=== PATIENT | female | born 2005 | race Two or more races ===

== ENCOUNTER 2024-02-11 13:05 | Emergency (ER) | payer MEDICAID ==
[~2024-02-11] VITALS: Ht 165.1 cm; Wt 65.0 kg
--- NOTE | 2024-02-11 13:28 | ED.PDOC ---
GI ASSESSMENT HPI Comments 18 year old female presents to the ED with chief complaint of abdominal pain during . Patient reports that she has been experiencing epigastric and suprapubic abdominal pain with associated nausea and vomiting since yesterday at 6pm. Patient relays that she is currently 5 weeks with her 2nd child after confirming with a test. Patient states she currently has no OBGYN follow up as she has recently arrived in the [place] and is unfamiliar with the doctors around where she lives. Patient is . Patient denies any diarrhea, fever, chills, chest pain, dizziness, vaginal bleeding, dysuria, or vaginal discharge. Time Seen by MD: 13:21 Reviewed Notes: Nurses Notes, Medications, Allergies Home Meds Active Scripts Famotidine (PEPCID TABLET) 20 Mg Tb, 1 TAB PO BID PRN for 10 Days, #20 TAB 5 Refills Prov:LAURA CORONADO MD 02/11/24 Dicyclomine Hcl (BENTYL CAPSULE) 10 Mg Cp, 10 MG GT Q6HP PRN for 10 Days, #30 CAP 3 Refills Prov:LAURA CORONADO MD 02/11/24 Information Source: Patient Mode of Arrival: Ambulatory Timing: Days Duration: Since onset Prehospital treatment: None Quality: Cramping, Colicky Vomitus: Watery Stool: Normal Severity: Moderate Recent: None Recent Hx of: Current Pain Location: Epigastric Associated sign and symptoms: Nausea, Vomiting, Abdominal Pain Past Medical History PAST MEDICAL HISTORY: Denies Surgical History: Denies all surgeries MARKET RESEARCH WORKER History: No Pertinent MARKET RESEARCH WORKER History Family History Family History: Reviewed,noncontributory to illness Social History Smoker: Non-Smoker Alcohol: Denies ETOH Use Drugs: Denies Drug Use Lives In: Home Constitutional: denies: chills, diaphoresis, fatigue, fever, malaise, sweats, weakness, others EENTM: denies: blurred vision, double vision, ear bleeding, ear discharge, ear drainage, ear pain, ear ringing, eye pain, eye redness, hearing loss, mouth pain, mouth swelling, nasal discharge, nose bleeding, nose congestion, nose pain, photophobia, tearing, throat pain, throat swelling, voice changes, others Respiratory: denies: cough, hemoptysis, orthopnea, SOB at rest, shortness of breath, SOB with excertion, stridor, wheezing, others Cardiovascular: denies: chest pain, dizzy spells, diaphoresis, Dyspnea on exertion, edema, irregular heart beat, left arm pain, lightheadedness, palpitations, PND, syncope, others Gastrointestinal: reports: abdominal pain, nausea, vomiting; denies: abdomen distended, blood streaked bowels, constipated, diarrhea, dysphagia, difficulty swallowing, hematemesis, melena, poor appetite, poor fluid intake, rectal bleeding, rectal pain, others Genitourinary: reports: ; denies: abnormal vagina bleeding, burning, dyspareunia, dysuria, flank pain, frequency, hematuria, incontinence, pain, vagina discharge, urgency, others Neurological: denies: dizziness, fainting, headache, left sided numbness, left sided weakness, numbness, paresthesia, pre-existing deficit, right sided numbness, right sided weakness, seizure, speech problems, tingling, tremors, weakness, others Musculoskeletal: denies: back pain, gout, joint pain, joint swelling, muscle pain, muscle stiffness, neck pain, others Integumetry: denies: bruises, change in color, change in hair/nails, dryness, laceration, lesions, lumps, rash, wounds, others Allergic/Immunocompromised: denies: Difficulty Healing, Frequent Infections, Hives, Itching, others Hematologic/Lymphatic: denies: anemia, blood clots, easy bleeding, easy bruising, swollen glands, others Endocrine: denies: excessive hunger, excessive sweating, excessive thirst, excessive urination, flushing, intolerance to cold, intolerance to heat, unexplained weight gain, unexplained weight loss, others Psychiatric: denies: anxiety, bipolar disorder, depression, hopeless, panic disorder, schizophrenia, sleepless, suicidal, others All Other Systems: Reviewed and Negative Physical Exam General Appearance: Mild Distress, Normal HEENT: Normal ENT Inspection, PERRL/EOMI Neck: Full Range of Motion, Non-Tender, Normal, Normal Inspection Respiratory: Chest Non-Tender, Lungs Clear, No Accessory Muscle Use, No Respiratory Distress, Normal Breath Sounds Cardiovascular: No Edema, No JVD, No Murmur, No Gallop, Normal Peripheral Pulses, Regular Rate/Rhythm Breast Exam: Deferred Gastrointestinal: No Organomegaly, Non Tender, No Pulsatile Mass, Normal Bowel Sounds, Soft, Tenderness (Mild epigastric tenderness, no rebound) Genitalia: Deferred Pelvic: Deferred Rectal: Deferred Extremities: No calf tenderness, Normal capillary refill, Normal inspection, Normal range of motion, Non-tender, No pedal edema Musculoskeletal : Apperance: Normal Neurologic: Alert, food and beverage server II-XII nml as Tested, No Motor Deficits, Normal Affect, Normal Mood, No Sensory Deficits Cerebellar Function: Normal Reflexes: Normal Skin: Dry, Normal Color, Warm Lymphatic: No Adenopathy Was a procedure done? Was a procedure done?: No GI differential Dx Differential Diagnosis: Complete , Incomplete , Inevitable , Missed , Threatened , Bowel Obstruction, Cholangitis, Cholecystitis, Ectopic , Gastritis/PUD, Gastroenteritis, Inflammatory BD, Dehydration, Electrolyte Imbalance, Other X-Ray, Labs, Meds, VS Vital Signs Date Time Temp Pulse Resp B/P (MAP) Pulse Ox O2 Delivery O2 Flow Rate FiO2 02/11/24 15:51 99 18 119/72 (88) 99 02/11/24 15:51 82 18 99 Room Air 02/11/24 13:21 98.5 102 16 129/79 (96) 99 Lab Test 02/11/24 13:29 02/11/24 13:15 Range/Units White Blood Count 9.9 4.4-10.8 10^3/uL Red Blood Count 4.74 4.0-5.20 10^6/uL Hemoglobin 13.4 12.2-16.2 g/dL Hematocrit 39.9 36.0-46.0 % Mean Corpuscular Volume 84.2 80.0-100.0 fL Mean Corpuscular Hemoglobin 28.3 28.0-32.0 pg Mean Corpuscular Hemoglobin Concent 33.6 32.0-36.0 g/dL Red Cell Distribution Width 13.5 11.8-14.3 % Platelet Count 238 140-450 10^3/uL Mean Platelet Volume 8.6 6.9-10.8 fL Neutrophils (%) (Auto) 71.7 37.0-80.0 % Lymphocytes (%) (Auto) 19.9 10.0-50.0 % Monocytes (%) (Auto) 7.7 0.0-12.0 % Eosinophils (%) (Auto) 0.4 0.0-7.0 % Basophils (%) (Auto) 0.3 0.0-2.0 % Neutrophils # (Auto) 7.1 1.6-8.6 10 ^3/uL Lymphocytes # (Auto) 2.0 0.4-5.4 10 ^3/uL Monocytes # (Auto) 0.8 0-1.3 10 ^3/uL Eosinophils # (Auto) 0 0-0.8 10 ^3/uL Basophils # (Auto) 0 0-0.2 10 ^3/uL Nucleated Red Blood Cells 0.1 % Sodium Level 138 136-145 mmol/L Potassium Level 3.8 3.5-5.1 mmol/L Chloride Level 105 98-107 mmol/L Carbon Dioxide Level 22 20-31 mmol/L Anion Gap 11 5-15 Blood Urea Nitrogen 6 L 9-23 mg/dL Creatinine 0.59 0.550-1.02 mg/dL Glomerular Filtration Rate Calc 133 >90 mL/min BUN/Creatinine Ratio 10.2 10.0-20.0 Serum Glucose 85 74-106 mg/dL Calcium Level 10.2 8.7-10.4 mg/dL Total Bilirubin 0.5 0.2-1.0 mg/dL Aspartate Amino Transferase (AST) 13 13-40 U/L Alanine Aminotransferase (ALT) 14 7-40 U/L Alkaline Phosphatase 74 46-116 U/L Total Protein 7.6 5.7-8.2 g/dL Albumin 5.1 H 3.2-4.8 g/dL Lipase 35 12-53 U/L Beta HCG, Quantitative 76089.4 H 1.5-4.2 mIU/mL Urine Color Colorless Yellow Urine Clarity Turbid H Clear Urine pH 7.0 5.0-9.0 Urine Specific [place] 1.006 1.001-1.035 Urine Protein Negative Negative Urine Ketones Trace Negative Urine Blood Negative Negative /uL Urine Nitrite Negative Negative Urine Bilirubin Negative Negative Urine Urobilinogen Normal Negative mg/dL Urine Leukocyte Esterase Negative Negative /uL Urine RBC 2 0 - 4 /hpf Urine WBC 1 0 - 5 /hpf Urine Squamous Epithelial Cells Few <5 /hpf Urine Bacteria None seen None Seen /hpf Urine Glucose Normal Normal mg/dL OB US: FINDINGS: The uterus measures 8.9 x 7.3 x 6.4 cm The cervix not measured Right ovary measures 2.9 x 1.3 x 1.6 cm. Right ovarian volume is 3 cc. with normal Doppler color flow Left ovary measures 4.4 x 2.3 x 2 cm. Left ovarian volume is 10 cc. There is a complex mass in the left ovary measuring 2.4 x 1.5 x 1.3 cm may represent hemorrhagic corpus luteal cyst. with normal Doppler color flow IUP single live fetus at 7 weeks 3 days average ultrasound age based on mean crown-rump length of 1.1 cm and gestational sac size of 2.7 cm heart rate detected at 150 beats per minute. Yolk sac visualized. Amniotic fluid adequate Annie-gestational space: 2.4 x 0.4 x 2.3 cm anechoic lesion adjacent to the gestational sac consistent with subchorionic hemorrhage. IMPRESSION: 1. IUP single live fetus 7 weeks 3 days AUA corresponding to an LORRI of 09/26/2024. 2. FHR: 150 Bpm 3. Small 2.4 x 0.4 x 2.3 cm subchorionic hemorrhage Abdomen US: FINDINGS: The liver is homogenous in echogenicity. The liver measures 13.3 cm. No intrahepatic biliary ductal dilatation is noted. The gallbladder wall measures 0.2 cm and is unremarkable. Echogenic structure adjacent to the gallbladder wall measuring 0.6 cm. It does not demonstrate internal vascularity on color doppler. The common duct measures 0.3 cm and is unremarkable. No pericholecystic fluid is noted. Teacher Hearing Impaired notes a negative sonographic jacobsen's sign. The right kidney measures 10.3 cm. No hydronephrosis. The left kidney measures 10.6 cm. No hydronephrosis. The spleen measures 10.4 cm, within normal limits. The echogenicity is within normal limits. The visualized portions of the pancreas appear grossly normal. The visualized portions of the IVC and aorta are grossly unremarkable. IMPRESSION: 1. Echogenic 0.6 cm structure within gallbladder may represent nonshadowing cholelithiasis versus gallbladder polyp. No evidence for acute cholecystitis. Images Reviewed?: Images reviewed and evaluated by me Time of 1ST Reevaluation: 14:21 Reevaluation 1ST: Unchanged Time of 2ND Reevaluation: 15:00 Reevaluation 2ND: Improved Patient Education/Counseling: Diagnosis, Treatment Family Education/Counseling: No Family Present Departure 1 Departure Time of Disposition: 15:00 Impression: Primary Impression: 6 weeks gestation of Additional Impressions: Cholelithiasis Epigastric pain Disposition: 01 HOME / SELF CARE / HOMELESS Condition: Stable e-Prescriptions Famotidine (PEPCID TABLET) 20 Mg Tb 1 TAB PO BID PRN for 10 Days, #20 TAB 5 Refills Prov: LAURA CORONADO MD 02/11/24 Dicyclomine Hcl (BENTYL CAPSULE) 10 Mg Cp 10 MG GT Q6HP PRN for 10 Days, #30 CAP 3 Refills Prov: LAURA CORONADO MD 02/11/24 Discharged With: Self Critical Care Note Critical Care Time?: No Stability Stability form required: No Heart Score Heart Score: Heart Score Response (Comments) Value History N/A 0 EKG N/A 0 Age N/A 0 Risk Factors N/A 0 Troponin N/A 0 Total 0 I personally scribed for LAURA CORONADO MD ([email or web address]) on 02/11/24 at 13:28. Electronically submitted by Arik De Jesus ([email or web address]). I personally scribed for LAURA CORONADO MD ([email or web address]) on 02/11/24 at 13:28. Electronically submitted by Arik De Jesus ([email or web address]). I personally scribed for LAURA CORONADO MD ([email or web address]) on 02/11/24 at 15:40. Electronically submitted by Arik De Jesus ([email or web address]). LAURA CORONADO MD Feb 11, 2024 13:28
[2024-02-11 13:43] LABS: Urine Bacteria None Seen /hpf (None Seen)
[2024-02-11 13:47] LABS: Basophils # (auto) 0 10 ^3/uL (0-0.2); Basophils % (auto) 0.3 % (0.0-2.0); Eosinophils # (auto) 0 10 ^3/uL (0-0.8); Eosinophils % (auto) 0.4 % (0.0-7.0); Hematocrit 39.9 % (36.0-46.0); Hemoglobin 13.4 g/dL (12.2-16.2); Lymphocytes % (auto) 19.9 % (10.0-50.0); Mean Corpuscular Hemoglobin 28.3 pg (28.0-32.0); Mean Corpuscular Hgb Conc. 33.6 g/dL (32.0-36.0); Mean Corpuscular Volume 84.2 fL (80.0-100.0); Monocytes # (auto) 0.8 10 ^3/uL (0-1.3); Monocytes % (auto) 7.7 % (0.0-12.0); Neutrophils # (auto) 7.1 10 ^3/uL (1.6-8.6); Neutrophils % (auto) 71.7 % (37.0-80.0); Nucleated Red Blood Cells % 0.1 %; Platelet Count (auto) 238 10^3/uL (140-450); Red Blood Cells 4.74 10^6/uL (4.0-5.20); Red Cell Distribution Width 13.5 % (11.8-14.3); White Blood Cell 9.9 10^3/uL (4.4-10.8)
[2024-02-11 13:55] LABS: Alanine Aminotransferase 14 U/L (7-40); Alkaline Phosphatase 74 U/L (46-116); Anion Gap 11 (5-15); BUN/Creatinine Ratio 10.2 (10.0-20.0); Calcium 10.2 mg/dL (8.7-10.4); Carbon Dioxide 22 mmol/L (20-31); Chloride 105 mmol/L (98-107); Glucose 85 mg/dL (74-106); Lipase 35 U/L (12-53); Potassium 3.8 mmol/L (3.5-5.1); Sodium 138 mmol/L (136-145)
[2024-02-11 13:56] LABS: Urine Blood Negative /uL (Negative); Urine Clarity Turbid (Clear); Urine Color Colorless (Yellow); Urine Protein, UAD Negative (Negative); Urine Specific Gravity 1.006 (1.001-1.035); Urine Urobilinogen Normal (Negative); Urine WBC 1 /hpf (0 - 5)
[2024-02-11 13:56] LABS: Bilirubin, Total 0.5 mg/dL (0.2-1.0); Total Protein 7.6 g/dL (5.7-8.2)
[2024-02-11 14:02] LABS: Albumin 5.1 g/dL (3.2-4.8); Aspartate Aminotransferase 13 U/L (13-40); Blood Urea Nitrogen 6 mg/dL (9-23)
--- NOTE | 2024-02-11 15:29 | DVH ---
INDICATION: pain TECHNIQUE: Multiple real-time sonographic images of the abdomen were obtained. COMPARISON: None FINDINGS: The liver is homogenous in echogenicity. The liver measures 13.3 cm. No intrahepatic bilia ry ductal dilatation is noted. The gallbladder wall measures 0.2 cm and is unremarkable. Echogenic structure adjacent to the gallb ladder wall measuring 0.6 cm. It does not demonstrate internal vascularity on color doppler. The com mon duct measures 0.3 cm and is unremarkable. No pericholecystic fluid is noted. Refrigeration Insulator notes a negative sonographic jacobsen's sign. The right kidney measures 10.3 cm. No hydronephrosis. The left kidney measures 10.6 cm. No hydronep hrosis. The spleen measures 10.4 cm, within normal limits. The echogenicity is within normal limits. The visualized portions of the pancreas appear grossly normal. The visualized portions of the IVC and aorta are grossly unremarkable. IMPRESSION: 1. Echogenic 0.6 cm structure within gallbladder may represent nonshadowing cholelithiasis versus gal lbladder polyp. No evidence for acute cholecystitis. HS:Y
--- NOTE | 2024-02-11 15:34 | DVH ---
OB ULTRASOUND <14 WEEKS: HISTORY: abd pain TECHNIQUE: Multiple real-time grayscale sonographic images of the pelvis with duplex Doppler color f low, spectral and M-mode analysis. TRANSDUCERS: Transabdominal and transvaginal. FINDINGS: The uterus measures 8.9 x 7.3 x 6.4 cm The cervix not measured Right ovary measures 2.9 x 1.3 x 1.6 cm. Right ovarian volume is 3 cc. with normal Doppler color flow Left ovary measures 4.4 x 2.3 x 2 cm. Left ovarian volume is 10 cc. There is a complex mass in the le ft ovary measuring 2.4 x 1.5 x 1.3 cm may represent hemorrhagic corpus luteal cyst. with normal Doppl er color flow IUP single live fetus at 7 weeks 3 days average ultrasound age based on mean crown-rump length of 1.1 cm and gestational sac size of 2.7 cm heart rate detected at 150 beats per minute. Yolk sac visualized. Amniotic fluid adequate Annie-gestational space: 2.4 x 0.4 x 2.3 cm anechoic lesion adjacent to the gestational sac consistent with subchorionic hemorrhage. IMPRESSION: 1. IUP single live fetus 7 weeks 3 days AUA corresponding to an LORRI of 09/26/2024. 2. FHR: 150 Bpm 3. Small 2.4 x 0.4 x 2.3 cm subchorionic hemorrhage
[2024-02-11] MEDS ORDERED: DICY10CA GT (15:44)
[2024-02-11] MEDS ORDERED: FAMO20TA10 PO (15:44)
[2024-02-11 15:51] VITALS: BP 119/72; PULSE 82; RESP 18; O2SAT 99
== END 2024-02-11 15:53 | disposition home or self-care (01) ==
LOC: ER 13:05
DX: O99.611 Diseases of the digestive system complicating pregnancy, first trimester (principal); R10.2 Pelvic and perineal pain; O26.611 Liver and biliary tract disorders in pregnancy, first trimester; O20.8 Other hemorrhage in early pregnancy; K80.20 Calculus of gallbladder without cholecystitis without obstruction; Z3A.01 Less than 8 weeks gestation of pregnancy
CPT/HCPCS: 36415; 76700; 76801; 80053; 81001; 83690; 84702; 85025

== ENCOUNTER 2024-02-16 23:28 | Emergency (ER) | payer MEDICAID ==
[~2024-02-16] VITALS: Ht 152.4 cm; Wt 63.7 kg
[~2024-02-16 23:28] MED LIST: DICY10CA GT; FAMO20TA10 PO
[2024-02-17 00:19] VITALS: BP 129/83; PULSE 87; RESP 18; O2SAT 96
--- NOTE | 2024-02-17 00:43 | ED.PDOC ---
GI ASSESSMENT HPI Comments HPI: Poor Historian. 18-year-old female presents to emergency department for evaluation of nausea and vomiting x1 day without any associated pain. Patient thought she might have vomited blood. She showed us a picture of the vomit which does not look like blood at all. Patient is approximately seven weeks . Patient was here few days ago and was evaluated for epigastric pain and was found with normal intrauterine and cholelithiasis. Patient was prescribed famotidine and dicyclomine. Past Medcial History: Past Surgical History: REVIEW OF SYSTEMS: CONSTITUTIONAL: Denies acute: fever, diaphoresis, chills, generalized weakness. HEAD: Denies acute: headache, photophobia Eyes: Denies acute: Double vision, vision loss, eye pain, eye discharge. EARS: Denies acute: tinnitus, hearing loss, ear discharge, ear pain, THROAT: Denies acute: sore throat, swelling, difficulty swallowing , pain with swallowing, change in voice. NECK: Denies acute: neck pain, neck swelling, stiff neck. HEART: Denies acute : chest pain, palpitations, LUNGS: Denies acute: SOB, wheezing, cough, hemoptysis ABDOMEN: Denies acute: abdominal pain, diarrhea, melena , hematemesis, hematochezia SKIN: Denies acute: rash, redness, lesions, itchiness. EXTREMITIES: Denies acute: calf pain, numbness, tingling, weakness, denies pain in extremity. Denies acute: Low back pain. Neuro: Denies acute: focal neurological deficit, motor or sensory focal neurological deficit, tremors, seizure like activity, confusion, dizziness, change in mental status, loss of bowel or bladder function, cauda equina like symptoms. : Denies acute: dysuria, hematuria, flank pain, increase in urinary frequency. PSYCH: Denies acute: hallucination, suicidal ideation, homicidal ideation. FEMALE: Denies acute: abnormal vaginal bleeding, foul odor, unusual discharge. PHYSICAL EXAM: General: no acute distress, awake and alert. Head: normocephalic, atraumatic. Neck: supple, trachea is midline, no swelling. Throat: Normal phonation. Eyes:, no erythema, no purulent discharge, no proptosis, no icterus. Heart: regular rate, regular rhythm, no significant murmur appreciated. Lungs: no apparent respiratory distress, Able to speak in full sentences. No wheezing, no rhonchi, no crackles. No stridors Clear to auscultation bilaterally. Abdomen: non tender to palpation, non distended, soft, no guarding, no rebound, + bowel sounds. Neuro: Awake, Alert, oriented to name, self, situation, follows commands GCS=15. Speech is normal. Skin: no petechia, no purpura, no cyanosis, non-pale, not jaundice. Lower extremities: --no - Pitting edema no deformity, no focal swelling, no calf TTP. Makes eye contact. moves all four extremities. Face: no apparent facial droop. Ambulating in the ED independently. Chief Complaint: Nausea/Vomiting Time Seen by MD: 23:42 Reviewed Notes: Nurses Notes, Medications, Allergies Allergies: Coded Allergies: NO KNOWN ALLERGIES (Unverified , 02/17/24) Home Meds Active Scripts Cephalexin Monohydrate (Cephalexin) 500 Mg Cap, 500 MG PO Q8HR for 5 Days, #15 CAP Prov:SERGIO CORTES DO 02/17/24 Ondansetron Odt 4MG Tab (ZOFRAN PO) 4 Mg Tb, 4 MG PO Q8HPRN PRN for 3 Days, #9 TAB ODT TAB-DISSOLVE IN MOUTH, THEN SWALLOW Prov:SERGIO CORTES DO 02/17/24 Famotidine (PEPCID TABLET) 20 Mg Tb, 1 TAB PO BID PRN for 10 Days, #20 TAB 5 Refills Prov:ALURA CORONADO MD 02/11/24 Dicyclomine Hcl (BENTYL CAPSULE) 10 Mg Cp, 10 MG GT Q6HP PRN for 10 Days, #30 CAP 3 Refills Prov:LAURA CORONADO MD 02/11/24 Information Source: Patient Mode of Arrival: Ambulatory Past Medical History PAST MEDICAL HISTORY: Denies Surgical History: Denies all surgeries COMMUNICATIONS EQUIPMENT SUPERVISOR History: No Pertinent COMMUNICATIONS EQUIPMENT SUPERVISOR History Family History Family History: Reviewed,noncontributory to illness Social History Smoker: Non-Smoker Alcohol: Denies ETOH Use Drugs: Denies Drug Use Lives In: Home GI differential Dx Differential Diagnosis: Esophagitis, Gastritis/PUD, Gastroenteritis, GI hemorrhage, Hepatitis, Ischemic Bowel, UTI, Dehydration, Diabetes/ DKA, Esophageal Varicies X-Ray, Labs, Meds, VS Vital Signs Date Time Temp Pulse Resp B/P (MAP) Pulse Ox O2 Delivery O2 Flow Rate FiO2 02/17/24 00:19 98.8 87 18 129/83 (98) 96 Lab Test 02/17/24 01:31 02/17/24 00:40 Range/Units White Blood Count 11.4 H 4.4-10.8 10^3/uL Red Blood Count 5.14 4.0-5.20 10^6/uL Hemoglobin 14.7 12.2-16.2 g/dL Hematocrit 43.5 36.0-46.0 % Mean Corpuscular Volume 84.5 80.0-100.0 fL Mean Corpuscular Hemoglobin 28.5 28.0-32.0 pg Mean Corpuscular Hemoglobin Concent 33.7 32.0-36.0 g/dL Red Cell Distribution Width 13.5 11.8-14.3 % Platelet Count 231 140-450 10^3/uL Mean Platelet Volume 9.1 6.9-10.8 fL Neutrophils (%) (Auto) 74.5 37.0-80.0 % Lymphocytes (%) (Auto) 19.0 10.0-50.0 % Monocytes (%) (Auto) 5.8 0.0-12.0 % Eosinophils (%) (Auto) 0.3 0.0-7.0 % Basophils (%) (Auto) 0.4 0.0-2.0 % Neutrophils # (Auto) 8.5 1.6-8.6 10 ^3/uL Lymphocytes # (Auto) 2.2 0.4-5.4 10 ^3/uL Monocytes # (Auto) 0.7 0-1.3 10 ^3/uL Eosinophils # (Auto) 0 0-0.8 10 ^3/uL Basophils # (Auto) 0 0-0.2 10 ^3/uL Nucleated Red Blood Cells 0.0 % Sodium Level 137 136-145 mmol/L Potassium Level 3.5 3.5-5.1 mmol/L Chloride Level 103 98-107 mmol/L Carbon Dioxide Level 20 20-31 mmol/L Anion Gap 14 5-15 Blood Urea Nitrogen < 5 L 9-23 mg/dL Creatinine 0.59 0.550-1.02 mg/dL Glomerular Filtration Rate Calc 133 >90 mL/min BUN/Creatinine Ratio 8.5 L 10.0-20.0 Serum Glucose 87 74-106 mg/dL Calcium Level 10.7 H 8.7-10.4 mg/dL Total Bilirubin 0.7 0.2-1.0 mg/dL Aspartate Amino Transferase (AST) 22 13-40 U/L Alanine Aminotransferase (ALT) 37 7-40 U/L Alkaline Phosphatase 75 46-116 U/L Total Protein 8.3 H 5.7-8.2 g/dL Albumin 5.4 H 3.2-4.8 g/dL Lipase 40 12-53 U/L Urine Color Yellow Yellow Urine Clarity Turbid H Clear Urine pH 6.0 5.0-9.0 Urine Specific [place] 1.024 1.001-1.035 Urine Protein 1+ H Negative Urine Ketones 4+ H Negative Urine Blood Negative Negative /uL Urine Nitrite Negative Negative Urine Bilirubin Negative Negative Urine Urobilinogen Normal Negative mg/dL Urine Leukocyte Esterase Negative Negative /uL Urine RBC 4 0 - 4 /hpf Urine WBC 3 0 - 5 /hpf Urine Squamous Epithelial Cells Mod <5 /hpf Urine Bacteria Few H None Seen /hpf Urine Mucus Few None Seen Urine Glucose Normal Normal mg/dL Current Medications Medications (Trade) Dose Ordered Sig/[place] Route Start Time Stop Time Status Last Admin Ondansetron HCl (Zofran Po) 8 mg ONCE ONCE PO 02/17/24 00:45 02/17/24 00:46 DC 02/17/24 01:22 Sucralfate (Carafate Tab) 1 gm ONCE ONCE PO 02/17/24 00:45 02/17/24 00:46 DC 02/17/24 01:23 Pantoprazole Sodium (Protonix Tablet) 40 mg ONCE ONCE PO 02/17/24 00:45 02/17/24 00:46 ME 02/17/24 01:22 Time of 1ST Reevaluation: 02:01 Reevaluation 1ST: Resolved Patient Education/Counseling: Diagnosis, Treatment Family Education/Counseling: No Family Present Comments Patient presented with the above HPI.---nausea and vomiting in ---workup was initiated. patient was found with the above mentioned diagnosis. Patient was given: Zofran, Protonix PO, Carafate p.o.. Patient ED course and VS have been stabilized. Patient has been reassessed in the ED and remained in a stable condition. Pertinent incidental findings were discussed with the patient and/or family. Patient/family voices understanding and is agreeable with plan. Patient has been observed in the ED adequate length of time to insure improvement/stability. patient was discharged home in a stable condition. All the reports of any imaging studies that were ordered by myself were reviewed by myself. Departure 1 Departure Time of Disposition: 01:00 Impression: Primary Impression: UTI in Additional Impression: Nausea and vomiting during Disposition: HOME / SELF CARE / HOMELESS Condition: Stable Additional Instructions: Additional discharge instructions: You MUST follow-up with your primary care/family doctor in 1 to 2 days. If you are unable to see your primary care/family doctor, please return to our emergency room for re-assessment and re-evaluation in 1 to 2 days. Return to the emergency room here in our facility or to the nearest ER [facility] if your symptoms change or worsen. CONSULTATIONS: you MUST Follow-up for consultation as soon as possible with: Gynmaddie doctor in 1-2 days. Please call for appointment. You MUST call the consultants office yourself to make an appointment. You may need to arrange that through your insurance and/or your primary/family doctor. If you are unable to see the oncology consultant in 1 to 2 days, you must return to our e mergency room (or any other ER of your choice) for re-assessment and re- evaluation. Adequate fluid hydration. e-Prescriptions Cephalexin Monohydrate (Cephalexin) 500 Mg Cap 500 MG PO Q8HR for 5 Days, #15 CAP Prov: SERGIO CORTES DO 02/17/24 Ondansetron Odt 4MG Tab (ZOFRAN PO) 4 Mg Tb 4 MG PO Q8HPRN PRN for 3 Days, #9 TAB ODT TAB-DISSOLVE IN MOUTH, THEN SWALLOW Prov: SERGIO CORTES DO 02/17/24 Discharged With: Self Critical Care Note Critical Care Time?: No Heart Score Heart Score: Heart Score Response (Comments) Value History N/A 0 EKG N/A 0 Age N/A 0 Risk Factors N/A 0 Troponin N/A 0 Total 0 SERGIO CORTES DO Feb 17, 2024 00:43
[2024-02-17 00:54] LABS: Urine Bacteria FEW /hpf (None Seen); Urine Blood Negative /uL (Negative); Urine Clarity Turbid (Clear); Urine Color Yellow (Yellow); Urine Mucus FEW (None Seen); Urine Protein, UAD 1+ (Negative); Urine Specific Gravity 1.024 (1.001-1.035); Urine Urobilinogen Normal (Negative); Urine WBC 3 /hpf (0 - 5)
[2024-02-17] MEDS ORDERED: CEPH500C PO (01:01)
[2024-02-17] MEDS ORDERED: ZOFR4T PO (01:01)
[2024-02-17] MEDS: PANTOPRAZOLE 40 MG TAB PO ONE (01:22)
[2024-02-17] MEDS: ONDANSETRON ODT 4 MG TAB PO ONE (01:22)
[2024-02-17] MEDS: SUCRALFATE 1 GM TAB PO ONE (01:23)
[2024-02-17 01:47] LABS: Basophils # (auto) 0 10 ^3/uL (0-0.2); Basophils % (auto) 0.4 % (0.0-2.0); Eosinophils # (auto) 0 10 ^3/uL (0-0.8); Eosinophils % (auto) 0.3 % (0.0-7.0); Hematocrit 43.5 % (36.0-46.0); Hemoglobin 14.7 g/dL (12.2-16.2); Lymphocytes # (auto) 2.2 10 ^3/uL (0.4-5.4); Mean Corpuscular Hemoglobin 28.5 pg (28.0-32.0); Mean Corpuscular Hgb Conc. 33.7 g/dL (32.0-36.0); Mean Corpuscular Volume 84.5 fL (80.0-100.0); Monocytes # (auto) 0.7 10 ^3/uL (0-1.3); Monocytes % (auto) 5.8 % (0.0-12.0); Neutrophils # (auto) 8.5 10 ^3/uL (1.6-8.6); Neutrophils % (auto) 74.5 % (37.0-80.0); Platelet Count (auto) 231 10^3/uL (140-450); Red Blood Cells 5.14 10^6/uL (4.0-5.20); Red Cell Distribution Width 13.5 % (11.8-14.3); White Blood Cell 11.4 10^3/uL (4.4-10.8)
[2024-02-17 02:00] LABS: Alanine Aminotransferase 37 U/L (7-40); Albumin 5.4 g/dL (3.2-4.8); Alkaline Phosphatase 75 U/L (46-116); Anion Gap 14 (5-15); Aspartate Aminotransferase 22 U/L (13-40); BUN/Creatinine Ratio 8.5 (10.0-20.0); Bilirubin, Total 0.7 mg/dL (0.2-1.0); Blood Urea Nitrogen < 5 mg/dL (9-23); Calcium 10.7 mg/dL (8.7-10.4); Carbon Dioxide 20 mmol/L (20-31); Chloride 103 mmol/L (98-107); Glucose 87 mg/dL (74-106); Lipase 40 U/L (12-53); Potassium 3.5 mmol/L (3.5-5.1); Sodium 137 mmol/L (136-145); Total Protein 8.3 g/dL (5.7-8.2)
== END 2024-02-17 03:48 | disposition home or self-care (01) ==
LOC: ER 23:28
DX: O21.8 Other vomiting complicating pregnancy (principal); O23.41 Unspecified infection of urinary tract in pregnancy, first trimester; N39.0 Urinary tract infection, site not specified; Z79.899 Other long term (current) drug therapy; Z3A.01 Less than 8 weeks gestation of pregnancy
CPT/HCPCS: 36415; 80053; 81001; 83690; 85025; 99284; Q0162

== ENCOUNTER 2024-09-23 02:11 | Observation (INO) | payer MEDICAID ==
[~2024-09-23 02:11] MED LIST changes: +CEPH500C PO; +NITR-87 PO; +ZOFR4T PO
--- NOTE | 2024-09-23 11:36 | DVH ---
CLINICAL HISTORY: Term . COMPARISON: Prior ultrasound dated 02/11/2024. TECHNIQUE: biophysical profile was performed. Transabdominal sonographic images of the fetus we re obtained. FINDINGS: The fetus is in cephalic position. heart rate measures 154 BPM. Amniotic fluid index measures 14.3 cm. The placenta is posterior in position with no evidence of previa or abruption. BPP profile is an overall score of 8/8, with 2/2 points for breathing, with at least one episode of breathing over a 30 second duration during a 30 minute observation, 2/2 points for m ovements, with 3 or more discrete body or limb movements, 2/2 points for tone, with one or more episodes of extremity extension with return to flexion, or opening and closing of hand, and 2/ 2 points for amniotic fluid, with at least 1 pocket of amniotic fluid that measures 2 cm in 2 perpend icular planes. IMPRESSION: BPP score of 8/8.
[2024-09-23] MEDS ORDERED: PREN-96 PO (11:59)
--- NOTE | 2024-09-28 15:35 | DVHDS2 ---
Physician Discharge Progress N Final Diagnosis: term 40 wks Operations or Procedures: Operations or Procedures nst reactive reviwed,sono Condition on Discharge: Good Disposition: Home Discharge Instructions: Diet: Regular Activity: No Restrictions, As Tolerated Medications: na Follow Up Care: Specialist: 2d Discharge Statement: "Patient was advised to return to the ER or call 911 if any headaches, dizziness, shortness of breath, chest pain, abdominal pain, bleeding, fevers, or worsening of medical condition. Patient was counseled about treatment plan, medications, possible side effects, patientverbalized understanding. All questions were answered to the best of my ability. This discharge took greater then 30 minutes in planning, reviewing document ation, counseling the patient, and discussing with other team members." Visit Coding OBGYN Date of Service: Sep 23, 2024 Billing Provider: CLAYTON BOWER DO BEEF SPLITTER Common Visit Codes: [id number] OBS CARE (HIGH) BEEF SPLITTER Procedure Codes: 09169-44- NON-STRESS TEST CLAYTON BOWER DO Sep 28, 2024 15:35
== END 2024-09-23 12:12 | disposition home or self-care (01) ==
LOC: LDRP 10:15
PROVIDERS: ADMIT Obstetrics & Gynecology; ATTEND Obstetrics & Gynecology
DX: O48.0 Post-term pregnancy (principal); Z3A.40 40 weeks gestation of pregnancy; Z79.899 Other long term (current) drug therapy; Z98.890 Other specified postprocedural states
CPT/HCPCS: 59025; 76819; 81002; 94760; G0378

== ENCOUNTER 2024-09-25 10:17 | Observation (INO) | payer MEDICAID ==
[~2024-09-25 10:17] MED LIST changes: +PREN-96 PO
--- NOTE | 2024-09-25 11:14 | DVH ---
BIOPHYSICAL PROFILE HISTORY: post dates 40.2 TECHNIQUE: Multiple real-time grayscale sonographic images through the gravid uterus of the fetus wi th duplex Doppler color flow. FINDINGS: BIOPHYSICAL PROFILE: breathing score: 2 movement score: 2 tone score: 2 Quantitative KEYSHAWN score: 2 Total score: 8 out of 8 Live intrauterine , heart rate of 145 beats per minute. Cephalic lie. KEYSHAWN 9.8 cm. Placenta posteriorly /fundally positioned. IMPRESSION: Biophysical profile score: 8 out of 8
== END 2024-09-25 12:21 | disposition home or self-care (01) ==
LOC: LDRP 10:17
PROVIDERS: ADMIT Obstetrics & Gynecology; ATTEND Obstetrics & Gynecology
DX: O62.9 Abnormality of forces of labor, unspecified (principal); Z3A.40 40 weeks gestation of pregnancy; Z79.899 Other long term (current) drug therapy; Z98.890 Other specified postprocedural states
CPT/HCPCS: 59025; 76819; 81002; 94760; G0378

== ENCOUNTER 2024-09-26 17:56 | Inpatient (IN) | payer MEDICAID ==
[~2024-09-26] VITALS: Ht 157.5 cm; Wt 72.1 kg
[2024-09-26] MEDS ORDERED: WITCH HAZEL-GLYCERIN PAD TOP PRN (18:45)
[2024-09-26] MEDS ORDERED: PHISODERM TOP SOLN 240ML BTL TOP PRN (18:45)
[2024-09-26] MEDS ORDERED: DERMOPLAST 60ML BOTTLE TOP PRN (18:45)
[2024-09-26] MEDS: LACTATED RINGER'S 1,000 ML IV SCH (18:51)
[2024-09-26] MEDS: PENICILLIN G POT 5MIL/D5 50ML 50 ML IV ONE (18:52)
[2024-09-26 19:08] LABS: Hematocrit 35.6 % (36.0-46.0); Hemoglobin 12.0 g/dL (12.2-16.2); Mean Corpuscular Hemoglobin 28.3 pg (28.0-32.0); Mean Corpuscular Volume 83.8 fL (80.0-100.0); Nucleated Red Blood Cells % 0.0 %
[2024-09-26] MEDS: LACT. RINGERS/OXYTOCIN 20UNITS 500 ML IV ONE (19:09)
[2024-09-26] MEDS: LIDOCAINE 2%HCL (LOCAL ANESTH.) INJ 20ML MDV IJ PRN (19:13)
[2024-09-26 19:24] LABS: INR 0.89 (0.9-1.15); Partial Thromboplastin Time 27.3 SEC (24.5-34.5); Prothrombin Time 9.5 sec (9.3-11.8)
[2024-09-26 19:28] LABS: Albumin 4.3 g/dL (3.2-4.8); Anion Gap 12 (5-15); BUN/Creatinine Ratio 17.5 (10.0-20.0); Blood Urea Nitrogen 10 mg/dL (9-23); Calcium 9.1 mg/dL (8.7-10.4); Chloride 106 mmol/L (98-107); Glucose 79 mg/dL (74-106); Potassium 3.8 mmol/L (3.5-5.1); Sodium 137 mmol/L (136-145); Total Protein 7.1 g/dL (5.7-8.2)
[2024-09-26 19:29] LABS: Alanine Aminotransferase < 9 U/L (7-40); Alkaline Phosphatase 189 U/L (46-116); Bilirubin, Total 0.4 mg/dL (0.2-1.0); Carbon Dioxide 19 mmol/L (20-31)
[2024-09-26 19:48] LABS: Amphetamine Screen, Urine Neg (NEGATIVE); Barbiturate Scree,Urine Neg (NEGATIVE); Benzodiazephine Screen, Urine Neg (NEGATIVE); Cannabinoid Screen, Urine Neg (NEGATIVE); Cocaine Screen, Urine Neg (NEGATIVE); Opiate Scree,Urine Neg (NEGATIVE); Phencyclidine Screen, Urine Neg (NEGATIVE)
[2024-09-26] MEDS ORDERED: ACETAMINOPHEN 325 MG TAB PO PRN (21:00)
[2024-09-26] MEDS ORDERED: ONDANSETRON ODT 4 MG TAB PO PRN (21:00)
[2024-09-26] MEDS: DOCUSATE SOD 100 MG CAP PO SCH (22:16)
[2024-09-26] MEDS: IBUPROFEN 600 MG TAB PO PRN (22:16)
[2024-09-26] MEDS ORDERED: LACT. RINGERS/OXYTOCIN 20UNITS 500 ML IV ONE (22:30)
[2024-09-26] MEDS ORDERED: PENICILLIN G POTASSIUM 2,500,000 UNITS in D5W 5% 50 ML IV SCH (22:45)
--- NOTE | 2024-09-26 22:50 | DVHDS2 ---
Discharge Summary Date of Admission Sep 26, 2024 at 18:21 Date of Discharge: Sep 25, 2024 Admitting Diagnosis 40.2 weeks post dates Labs/Diagnostic Data: Laboratory Results Test 09/26/24 18:46 09/26/24 18:30 White Blood Count 9.3 10^3/uL (4.4-10.8) Red Blood Count 4.24 10^6/uL (4.0-5.20) Hemoglobin 12.0 g/dL (12.2-16.2) Hematocrit 35.6 % (36.0-46.0) Mean Corpuscular Volume 83.8 fL (80.0-100.0) Mean Corpuscular Hemoglobin 28.3 pg (28.0-32.0) Mean Corpuscular Hemoglobin Concent 33.7 g/dL (32.0-36.0) Red Cell Distribution Width 14.4 % (11.8-14.3) Platelet Count 220 10^3/uL (140-450) Mean Platelet Volume 9.3 fL (6.9-10.8) Neutrophils (%) (Auto) 72.7 % (37.0-80.0) Lymphocytes (%) (Auto) 21.2 % (10.0-50.0) Monocytes (%) (Auto) 5.5 % (0.0-12.0) Eosinophils (%) (Auto) 0.2 % (0.0-7.0) Basophils (%) (Auto) 0.4 % (0.0-2.0) Neutrophils # (Auto) 6.7 10 ^3/uL (1.6-8.6) Lymphocytes # (Auto) 2.0 10 ^3/uL (0.4-5.4) Monocytes # (Auto) 0.5 10 ^3/uL (0-1.3) Eosinophils # (Auto) 0 10 ^3/uL (0-0.8) Basophils # (Auto) 0 10 ^3/uL (0-0.2) Nucleated Red Blood Cells 0.0 % Prothrombin Time 9.5 sec (9.3-11.8) Prothrombin Time INR 0.89 (0.9-1.15) Activated Partial Thromboplast Time 27.3 SEC (24.5-34.5) Sodium Level 137 mmol/L (136-145) Potassium Level 3.8 mmol/L (3.5-5.1) Chloride Level 106 mmol/L (98-107) Carbon Dioxide Level 19 mmol/L (20-31) Anion Gap 12 (5-15) Blood Urea Nitrogen 10 mg/dL (9-23) Creatinine 0.57 mg/dL (0.550-1.02) Glomerular Filtration Rate Calc 133 mL/min (>90) BUN/Creatinine Ratio 17.5 (10.0-20.0) Serum Glucose 79 mg/dL (74-106) Calcium Level 9.1 mg/dL (8.7-10.4) Total Bilirubin 0.4 mg/dL (0.2-1.0) Aspartate Amino Transferase (AST) 20 U/L (13-40) Alanine Aminotransferase (ALT) < 9 U/L (7-40) Alkaline Phosphatase 189 U/L (46-116) Total Protein 7.1 g/dL (5.7-8.2) Albumin 4.3 g/dL (3.2-4.8) Treponema pallidum Antibody Non-reactive (Negative) Hepatitis C Antibody Negative (Negative) Urine Opiates Screen Neg (NEGATIVE) Urine Fentanyl Screen Neg (NEGATIVE) Urine Barbiturates Screen Neg (NEGATIVE) Urine Phencyclidine Screen Neg (NEGATIVE) Urine Amphetamines Screen Neg (NEGATIVE) Urine Benzodiazepines Screen Neg (NEGATIVE) Urine Cocaine Screen Neg (NEGATIVE) Urine Cannabinoids Screen Neg (NEGATIVE) Other Laboratory Tests 09/26/24 18:46 Brief Hx & Hospital Course: US reassuring, NST performed and reactive Condition at Discharge: Good Final Diagnosis/Problems List 40 + weeks Discharge Disposition: Home Discharge Instruct/Medications Diet: Regular Activity: Light activity Activity comment: kick counts labor precautions Scheduled Cephalexin Monohydrate (Cephalexin), 500 MG PO Q8HR Nitrofurantoin Monohydrate Mac (Macrobid), 100 MG PO BID Vit W/ Ferrous Fumara ( One Daily), 1 TAB PO DAILY, (Reported) Scheduled PRN Dicyclomine Hcl (Bentyl Capsule), 10 MG GT Q6HP PRN Famotidine (Pepcid Tablet), 1 TAB PO BID PRN Ondansetron Odt 4MG Tab (Zofran Po), 4 MG PO Q8HPRN PRN Discharge Statement: "Patient was advised to return to the ER or call 911 if any headaches, dizziness, shortness of breath, chest pain, abdominal pain, bleeding, fevers, or worsening of medical condition. Patient was counseled about treatment plan, medications, possible side effects, patientverbalized understanding. All questions were answered to the best of my ability. This discharge took greater then 30 minutes in planning, reviewing documentation, counseling the patient, and discussing with other team members." ASSESSMENT ASSESSMENT Assessment Visit Coding OBGYN Date of Service: Sep 25, 2024 Billing Provider: MARISSA MICHELE DO HYDROGRAPHER Common Visit Codes: [id number] INP/OBS CARE(HIGH), 06818-MRA/OBS SAME DATE (LOW), 07370-YSN/OBS SAME DATE (MOD) HYDROGRAPHER Procedure Codes: 25941-93- NON-STRESS TEST MARISSA MICHELE DO Sep 26, 2024 22:50
[2024-09-27 03:00] VITALS: BP 127/67; PULSE 70; RESP 16; TEMP 98.6; O2SAT 97
--- NOTE | 2024-09-27 05:57 | DVHHP2 ---
OB CC & HPI Patient Identification: : 2 Para: 1 EDC: Sep 26, 2024 EGA: 40+ Chief Complaints: Reason for admission: active labor Admission Nurse Assessment Rev: Yes History of Present Complaints contractions Past Medical History Cardiac: No pertinent Hx Pulmonary: No pertinent Hx Central Nervous System: No pertinent Hx GI: No pertinent Hx Hemotology/Oncology: No pertinent Hx Hepatobiliary: No pertinent Hx Psychiatric: No pertinent Hx Musculoskeletal: No pertinent Hx Rheumotologic: No pertinent Hx Infectious Disease: No peritnent Hx ENT: No pertinent Hx Renal/: No pertinent Hx Endocrine: No pertinent Hx Dermatology: No pertinent Hx OB History OB History Care: Good Care Ultrasounds: Normal mid trimester US Obstetrical Complications: None Medical Complications: None Allergies: Coded Allergies: NO KNOWN ALLERGIES (Unverified , 02/17/24) Home Meds Active Scripts Nitrofurantoin Monohydrate Mac (Macrobid) 100 Mg Cap, 100 MG PO BID for 5 Days, #10 CAP Prov:JASEN SOORIO MD 03/01/24 Ondansetron Odt 4MG Tab (ZOFRAN PO) 4 Mg Tb, 4 MG PO Q8HPRN PRN for 3 Days, #9 TAB ODT TAB-DISSOLVE IN MOUTH, THEN SWALLOW Prov:JASEN OSORIO MD 03/01/24 Cephalexin Monohydrate (Cephalexin) 500 Mg Cap, 500 MG PO Q8HR for 5 Days, #15 CAP Prov:SERGIO CORTES DO 02/17/24 Famotidine (PEPCID TABLET) 20 Mg Tb, 1 TAB PO BID PRN for 10 Days, #20 TAB 5 Refills Prov:LUARA CORONADO MD 02/11/24 Dicyclomine Hcl (BENTYL CAPSULE) 10 Mg Cp, 10 MG GT Q6HP PRN for 10 Days, #30 CAP 3 Refills Prov:LAURA CORONADO MD 02/11/24 Reported Medications Vit W/ Ferrous Fumara ( One Daily) Daily Tab, 1 TAB PO DAILY, #90 TAB 3 Refills 09/23/24 Current Medications Current Medications Medications (Trade) Dose Ordered Sig/[place] Route PRN Reason Start Time Stop Time Status Last Admin Lactated Ringer's 1,000 ml @ 125 mls/hr Q8H IV 09/26/24 18:45 09/26/24 22:49 DC 09/26/24 18:51 Penicillin G Potassium 0578257 units/Dextrose 50 ml @ 100 mls/hr Q4H IV 09/26/24 22:45 09/26/24 22:49 DC Nicolasa Monahan (Tucks) 1 pad PRN PRN TOP PERINEAL AREA DISCOMFORT 09/26/24 18:45 Sodium Lauryl Sulfate (Phisoderm) 240 ml PRN PRN TOP PERINEAL AREA DISCOMFORT 09/26/24 18:45 Benzocaine (Dermoplast) 1 applic PRN PRN TOP PERINEAL AREA DISCOMFORT 09/26/24 18:45 Lidocaine HCl (Xylocaine) 20 ml ONCE PRN IJ PERINEAL AREA DISCOMFORT 09/26/24 18:45 09/26/24 22:49 DC 09/26/24 19:13 Ibuprofen (Motrin Tablet) 600 mg Q6HP PRN PO MODERATE PAIN (4-6 PAIN SCALE) 09/26/24 21:00 09/26/24 22:16 Acetaminophen (Tylenol Tablet) 650 mg Q4HP PRN PO MILD PAIN (1-3 PAIN SCALE) 09/26/24 21:00 Ondansetron HCl (Zofran Po) 4 mg Q4HPRN PRN PO NAUSEA / VOMITING 09/26/24 21:00 Docusate Sodium (Colace Capsule) 200 mg HS PO 09/26/24 22:00 09/26/24 22:16 Family & Social History Family/Social History Blood Type: A+ Rubella: immune RPR/VDRL: Negative GBS Status: Positive HBsAG: Negative Review of Systems Constitutional: No symptom reported Ears, Nose, & Throat: No symptom reported Eyes: No symptom reported Pulmonary/Respiratory: No symptom reported Cardiovascular: No symptom reported Gastrointestinal: No symptom reported Genitourinary: No symptom reported Musculoskeletal: No symptom reported Skin: No symptom reported Psychiatric: No symptom reported Endocrine: No symptom reported Hemotologic/Lymphatic: No symptom reported OB Admission Exam Physical Exam Vitals: Vital Signs Date Time Temp Pulse Resp B/P (MAP) Pulse Ox O2 Delivery O2 Flow Rate FiO2 09/27/24 03:00 98.6 70 16 127/67 (87) 97 98.6 HEENT: TMs Normal, Fontanelles Normal, Nasal Mucosa Normal, Eyes non-injected, Oropharynx Normal, PERRLA, Moist Membranes, EOMI Heart: Rhythm Normal Lungs: Clear Abdomen: Non tender Extremities: Normal Reflexes: Normal Cervical Dilatation: 10cm Effacement: 100% Membranes: Intact Amniotic Fluid: Clear Heart Rate: 130's Accelerations: Accelerations Present Decelerations: No Decelerations Short Term Variability: Present Clinical Appeals Specialist Variability: Average (6-25) Contractions on Admission: < 5 Minutes Apart Intensity: Mild (Patient precipitously delivered shortly after arrival by RN) OB Plan Plan Admitting Diagnosis: Labor precipitous labor and delivery Plan: Expectant Management Visit Coding OBGYN Date of Service: Sep 26, 2024 Billing Provider: MARISSA MICHELE DO FILTROSE CRUSHER Common Visit Codes: 54600-VAK/OBS SAME DATE (HIGH) FILTROSE CRUSHER Procedure Codes: [id number] DEL INCLUDING MARISSA MICHELE DO Sep 27, 2024 05:57
[2024-09-27 07:00] VITALS: BP 127/76; PULSE 85; RESP 16; TEMP 97.7; O2SAT 98
[2024-09-27 11:00] VITALS: BP 123/77; PULSE 83; RESP 14; TEMP 97.9; O2SAT 99
[2024-09-27 15:00] VITALS: BP 117/70; PULSE 73; RESP 16; TEMP 98.2; O2SAT 97
[2024-09-27 19:15] VITALS: BP 118/73; PULSE 74; RESP 14; TEMP 98.2; O2SAT 97
[2024-09-27 23:00] VITALS: BP 113/67; PULSE 60; RESP 15; TEMP 98; O2SAT 98
[2024-09-28 03:00] VITALS: BP 116/72; PULSE 65; RESP 15; TEMP 98.4; O2SAT 99
--- NOTE | 2024-09-28 06:24 | LDN2 ---
Labor and Delivery Note Date 09/28/24 Age 19 1 Para 1 AB 0 EDC post dates EGA 40+ Diagnosis Precip delivery by RN Vaginal Delivery: VTX Vacuum Assisted: No Placenta: Spontaneous Sex: Female Weight pnd Apgars 9/9 Nuchal Cord Transected: No Amniotic Fluid: Clear Anesthesia none Episiotomy: No Extension: Yes (1st anterior) Repaired with 2-0 chromic EBL 300cc Labs Blood Bank 09/26/24 18:46: Blood Type A POSITIVE Complications none Conditions stable guarded Reception Interviewer not necessary Visit Coding OBGYN Date of Service: Sep 28, 2024 Billing Provider: MARISSA MICHELE DO BIOPROCESS DEVELOPMENT ENGINEER Common Visit Codes: [id number] INP/OBS CARE(HIGH) BIOPROCESS DEVELOPMENT ENGINEER Procedure Codes: 01740-XRT DEL INCLUDING MARISSA MICHELE DO Sep 28, 2024 06:24
--- NOTE | 2024-09-28 06:25 | DVHPN2 ---
Chief Complaints Patient reports: No new complaints, Feels better Nursing reports: No new complaints, No abdominal pain, No chest pain, No dizziness, No cough Objective Vitals Vital Signs Date Time Temp Pulse Resp B/P (MAP) Pulse Ox O2 Delivery O2 Flow Rate FiO2 09/28/24 03:00 98.4 65 15 116/72 (87) 99 98.4 09/27/24 19:15 Room Air 09/27/24 07:00 0.0 General: Normal Neck: Normal Lungs: Normal Cardiovascular: Normal Abdominal: Normal Musculoskeletal: Normal Extremities: Normal Skin: Normal Neurological: Normal Studies Laboratory Tests 09/26/24 18:46 Test 09/26/24 18:46 Range/Units Serum Glucose 79 74-106 mg/dL Ass/Plan Assessment PPD #1 Positive culture Plan advance care MARISSA MICHELE DO Sep 28, 2024 06:25
[2024-09-28 07:10] VITALS: BP 124/84; PULSE 69; RESP 17; TEMP 97.9; O2SAT 98
[2024-09-28 11:07] VITALS: BP 132/81; PULSE 70; RESP 17; TEMP 98.2; O2SAT 97
[2024-09-28 14:39] VITALS: BP 131/83; PULSE 69; RESP 17; TEMP 98.6; O2SAT 98
--- NOTE | 2024-09-28 17:58 | DVHDS2 ---
Obstetrics Discharge Summary Obstetrics Discharge Summary Date of Admission: Sep 26, 2024 Date of Discharge: Sep 28, 2024 Reason For Admission: Onset of Labor Procedures: NST Intrapartum Procedures: Spontaneous vaginal deliv Procedures: None Operative Complicat: Laceration (1st anterior) Discharge Diagnosis: Term -Delivered (Fundus at U, firm, midline, and light lochia.) Discharge Information: Activity (as tolerated, no heavy lifting and nothing in the vagina for 6 weeks), Diet (Routine), Medications (Rx sent), Instructions (Routine), Discharge to (Home), Accompanied by (partner), Discarge date (09/28/24) Visit Coding OBGYN Date of Service: Sep 28, 2024 Billing Provider: JENNY BLANCHARD CNM SOFTWARE SYSTEMS ENGINEER Common Visit Codes: 68481-UTK/OBS DISCH DAY <30MIN JENNY BLANCHARD CNM Sep 28, 2024 17:58
[2024-09-28] MEDS ORDERED: IBU600T PO (18:02)
[2024-09-28] MEDS ORDERED: DOCU-265 PO (18:02)
[2024-09-28 18:45] VITALS: BP 136/96; PULSE 76; RESP 18; TEMP 97.9; O2SAT 100
[2024-09-28] MEDS: TETANUS-DIPTH-ACEL PERTUSSIS 0.5ML SYR Tdap IM ONE (19:12)
== END 2024-09-28 18:54 | disposition home or self-care (01) | DRG 560 ==
LOC: LDRP 17:56 → OBSVTOIN 18:21 → LDRP 18:25
PROVIDERS: ADMIT Obstetrics & Gynecology; ATTEND Obstetrics & Gynecology
PROC: 10E0XZZ Delivery of Products of Conception, External Approach (ICD-10-PCS; principal; 2024-09-26)
PROC: 0HQ9XZZ Repair Perineum Skin, External Approach (ICD-10-PCS; 2024-09-26)
DX: O48.0 Post-term pregnancy (principal); Z37.0 Single live birth; O62.3 Precipitate labor; Z3A.40 40 weeks gestation of pregnancy; O99.824 Streptococcus B carrier state complicating childbirth; O70.0 First degree perineal laceration during delivery
CPT/HCPCS: 36415; 59025; 59409; 80053; 80307; 85025; 85610; 85730; 86780; 86803; 86850; 86900; 86901; 90715; 94760; 96360; 96365; 96366; 96372; G0378; J2540; J2590; J7060